=== PATIENT | female | born 1990 | race African-American/Black ===

== ENCOUNTER 2022-12-14 18:46 | Emergency (ER) | payer OTHER ==
[2022-12-14 19:49] LABS: Urine Blood Negative (Negative); Urine Glucose Negative (Negative); Urine Protein 3+ (Negative); Urine Specific Gravity >=1.030 (1.005-1.030)
[2022-12-14 19:52] LABS: Absolute Lymphocytes (CBC) 0.2 K/uL (0.7-4.9); Lymphocytes % 5.1 % (15.3-44.8); MCV 91.6 fL (80-100); MPV 8.8 fL (7.6-11.3); RBC Red Blood Cell Count 4.26 M/uL (3.86-4.86)
[2022-12-14 20:10] LABS: Albumin 3.7 g/dL (3.4-5.0); Bilirubin Total 0.4 mg/dL (0.2-1.0); Potassium 3.2 mmol/L (3.5-5.1); Protein, Total 7.6 g/dL (6.4-8.2)
[2022-12-14] MEDS ORDERED: ONDANSETRON 4 MG/2 ML VIAL ONE (20:28)
[2022-12-14] MEDS ORDERED: MORPHINE 4 MG/ML SYR ONE (20:28)
[2022-12-14] MEDS ORDERED: NA CHLORIDE 0.9% 1,000 ML ONE (20:29)
[2022-12-14 20:45] LABS: Blood Morphology Comment NOT SEEN (NOT SEEN); Platelet Estimate ADEQ; White Blood Cell Scan OK (OK)
--- NOTE | 2022-12-14 21:01 | RAD REPORT ---
EXAM DESCRIPTION: CTAbdomen Pelvis W Contrast - 12/14/2022 8:46 pm CLINICAL HISTORY: ABD PAIN COMPARISON: No comparisons TECHNIQUE: CT of the abdomen and pelvis was performed with IV contrast. All CT scans are performed using dose optimization technique as appropriate and may include automated exposure control or mA/KV adjustment according to patient size. FINDINGS: Lower chest: No acute abnormality. Liver: No acute abnormality or suspicious lesions. Biliary: No biliary ductal dilatation. Stomach: No significant focal abnormality. Duodenum: No significant focal abnormality. Pancreas: No significant abnormality. Spleen: No significant abnormality. Adrenal: No suspicious lesions. Kidney/ureter: No hydronephrosis. No renal calculi. Retroperitoneum: No retroperitoneal adenopathy. Vascular: No aneurysm. Bowel: No significant focal abnormality. Normal appendix . Moderate stool in the ascending and transv erse colon . Peritoneum: No ascites or free air. Bladder: Grossly unremarkable. Reproductive: No adnexal masses. Bones: No acute fracture. Other: n/a IMPRESSION: No acute intra-abdominal or pelvic finding. Normal appendix.
[2022-12-14 21:54] LABS: Urine Specific Gravity/Preg >1.030 (1.005-1.030)
[2022-12-14] MEDS ORDERED: DOXYCYCLINE 100 MG CAP PO ONE (22:30)
[2022-12-14] MEDS ORDERED: CEFTRIAXONE 1000 MG/VIAL ONE (22:30)
[2022-12-14] MEDS ORDERED: AZITHROMYCIN 250 MG TAB ONE (22:30)
[2022-12-15 00:15] VITALS: BP 110/62; TEMP 98; O2SAT 100
--- NOTE | 2022-12-27 16:21 | EDPHYS ---
Physician Documentation [facility] Name: Nick Ahumada Age: 32 yrs Sex: Female : 1990 Arrival Date: 12/14/2022 Time: 18:52 Bed 10 Private MD: ED Physician Robe Baez HPI: 12/14 22:12 This 32 yrs old Black Female presents to ER via Ambulatory with complaints of Abdominal kayley Pain, Dizziness, Headache. 22:12 The patient presents with dizziness. Onset: The symptoms/episode began/occurred 3 kayley day(s) ago. 22:12 Modifying factors: The symptoms are alleviated by nothing, lying down, the symptoms are kayley aggravated by standing up, changing position. Severity of symptoms: At their worst the symptoms were mild moderate in the emergency department the symptoms are unchanged. The symptoms are described as crampy. Historical: - Allergies: 18:57 No Known Allergies; mb9 - Home Meds: 18:57 None [Active]; mb9 - PMHx: 18:57 None; mb9 - PSHx: 18:57 None; mb9 - Immunization history:: Adult Immunizations up to date. - Social history:: Smoking status: Patient reports the use of cigarette tobacco products, denies chronic smoking, but will smoke occasionally. - Family history:: not pertinent. ROS: 22:12 Constitutional: Negative for fever, chills, and weight loss, Eyes: Negative for injury, kayley pain, redness, and discharge, ENT: Negative for injury, pain, and discharge, Neck: Negative for injury, pain, and swelling, Cardiovascular: Negative for chest pain, palpitations, and edema, Respiratory: Negative for shortness of breath, cough, wheezing, and pleuritic chest pain, Back: Negative for injury and pain, : Negative for injury, bleeding, discharge, and swelling, MS/Extremity: Negative for injury and deformity, Skin: Negative for injury, rash, and discoloration, Neuro: Negative for headache, weakness, numbness, tingling, and seizure, Psych: Negative for depression, anxiety, suicide ideation, homicidal ideation, and hallucinations, Allergy/Immunology: Negative for hives, rash, and allergies, Endocrine: Negative for neck swelling, polydipsia, polyuria, polyphagia, and marked weight changes, Hematologic/Lymphatic: Negative for swollen nodes, abnormal bleeding, and unusual bruising. 22:12 Abdomen/GI: Positive for abdominal pain, of the right upper quadrant, left upper quadrant, right lower quadrant and left lower quadrant. Exam: 22:12 Constitutional: This is a well developed, well nourished patient who is awake, alert, kayley and in no acute distress. Head/Face: Normocephalic, atraumatic. Eyes: Pupils equal round and reactive to light, extra-ocular motions intact. Lids and lashes normal. Conjunctiva and sclera are non-icteric and not injected. Cornea within normal limits. Periorbital areas with no swelling, redness, or edema. ENT: Nares patent. No nasal discharge, no septal abnormalities noted. Tympanic membranes are normal and external auditory canals are clear. Oropharynx with no redness, swelling, or masses, exudates, or evidence of obstruction, uvula midline. Mucous membranes moist. Neck: Trachea midline, no thyromegaly or masses palpated, and no cervical lymphadenopathy. Supple, full range of motion without nuchal rigidity, or vertebral point tenderness. No Meningismus. Chest/axilla: Normal chest wall appearance and motion. Nontender with no deformity. No lesions are appreciated. Cardiovascular: Regular rate and rhythm with a normal S1 and S2. No gallops, murmurs, or rubs. Normal PMI, no JVD. No pulse deficits. Respiratory: Lungs have equal breath sounds bilaterally, clear to auscultation and percussion. No rales, rhonchi or wheezes noted. No increased work of breathing, no retractions or nasal flaring. Back: No spinal tenderness. No costovertebral tenderness. Full range of motion. Skin: Warm, dry with normal turgor. Normal color with no rashes, no lesions, and no evidence of cellulitis. MS/ Extremity: Pulses equal, no cyanosis. Neurovascular intact. Full, normal range of motion. Neuro: Awake and alert, GCS 15, oriented to person, place, time, and situation. Cranial nerves II-XII grossly intact. Motor strength 5/5 in all extremities. Sensory grossly intact. Cerebellar exam normal. Normal gait. Psych: Awake, alert, with orientation to person, place and time. Behavior, mood, and affect are within normal limits. 22:12 Abdomen/GI: Inspection: distension, that is mild, that is moderate, Bowel sounds: active, all quadrants, Palpation: mild abdominal tenderness, moderate abdominal tenderness, in all quadrants, Liver: no appreciated palpable abnormalities, Hernia: not appreciated. Vital Signs: 18:56 BP 127 / 84; Pulse 119; Resp 20; Temp 98.4; Pulse Ox 97% ; Weight 90.72 kg; Height 5 mb9 ft. 3 in. ; Pain 10/10; 20:04 BP 124 / 72; Pulse 100; Resp 18 S; Temp 99.9; Pulse Ox 98% on R/A; as7 22:53 BP 110 / 62; Pulse 100; Resp 18; Temp 98; Pulse Ox 100% ; Pain 2/10; kb3 18:56 Body Mass Index 35.43 (90.72 kg, 160.02 cm) mb9 18:56 Pain Scale: Adult mb9 22:53 Pain Scale: Adult kb3 MDM: 19:17 Patient medically screened. kayley 19:23 Patient medically screened. kayley 22:14 Differential diagnosis: hypovolemia, near-syncope, , sepsis. Differential kayley diagnosis: cholecystitis, Cholelithiasis, diverticulitis, gastritis, Irritable bowel syndrome, Mesenteric ischemia or infarction, non-specific abd pain, pancreatitis, Peptic Ulcer Disease, Pyelonephritis, Ureterolithiasis, urinary tract infection. Data reviewed: vital signs, nurses notes, lab test result(s), radiologic studies, CT scan. Consideration of Admission/Observation Escalation of care including admission/observation considered. Independent interpretation of the following test(s) in the Emergency Department. Test considered but Not performed: Ultrasound GALLBLADDER USG. Care significantly affected by the following chronic conditions: NO CHRONIC MED PROBLEMS. 12/14 19:18 Order name: CBC with Diff; Complete Time: 21:43 [facility] 12/14 19:18 Order name: CMP; Complete Time: 21:43 [facility] 12/14 19:18 Order name: Lipase; Complete Time: 21:43 [facility] 12/14 19:49 Order name: Urine Dipstick-Ancillary; Complete Time: 21:43 EDFL 12/14 20:25 Order name: Urine --Ancillary (enter results) 12/14 20:45 Order name: CBC Smear Scan; Complete Time: 21:43 EDFL 12/14 21:54 Order name: Urine --Ancillary; Complete Time: 22:10 EDFL 12/14 19:18 Order name: CT Abd/Pelvis - IV Contrast Only kayley 12/14 21:02 Order name: CT; Complete Time: 21:43 EDMS 12/14 18:58 Order name: Urine Dipstick-Ancillary (obtain specimen); Complete Time: 19:58 [facility] 12/14 18:58 Order name: Urine Test (obtain specimen); Complete Time: 19:58 [facility] 12/14 19:18 Order name: IV Saline Lock; Complete Time: 19:58 [facility] 12/14 19:18 Order name: Labs collected and sent; Complete Time: 19:58 kayley Administered Medications: 20:32 Drug: NS 0.9% IV 1000 ml Route: IV; Rate: 1 bolus; Site: right antecubital; kb3 22:45 Follow up: Response: No adverse reaction; IV Status: Completed infusion; IV Intake: kb3 750ml 20:32 Drug: Ondansetron IVP 4 mg Route: IVP; Site: right antecubital; kb3 21:00 Follow up: Response: No adverse reaction; Nausea is decreased kb3 20:45 Drug: morphine IVP or IV 4 mg Route: IVP; Infused Over: 4 mins; Site: right antecubital;kb3 21:15 Follow up: Response: No adverse reaction; Pain is decreased kb3 22:38 Drug: Rocephin IV 1 grams Route: IV; Rate: per protocol; Site: right antecubital; kb3 22:46 Follow up: Response: No adverse reaction; IV Status: Completed infusion; IV Intake: [id number] 22:38 Drug: AZITHromycin PO 1 grams Route: PO; kb3 22:46 Follow up: Response: No adverse reaction kb3 22:38 Drug: Doxycycline PO 200 mg Route: PO; kb3 22:46 Follow up: Response: No adverse reaction kb3 Disposition Summary: 12/14/22 22:21 Discharge Ordered Location: Home kayley Problem: new kayley Symptoms: have improved kayley Condition: Stable kayley Diagnosis - Abdominal pain, Generalized kayley Followup: kayley - With: Private Physician - When: 2 - 3 days - Reason: Recheck today's complaints, Continuance of care, Re-evaluation by your physician Followup: kayley - With: Leti Neville MD - When: 2 - 3 days - Reason: Recheck today's complaints, Re-evaluation by your physician Discharge Instructions: - Discharge Summary Sheet [facility] - Abdominal Pain, Adult kayley - Abdominal Pain, Adult, [id number] [facility] - Preventing Sexually Transmitted Infections, Adult [facility] Forms: - Medication Reconciliation Form [facility] - Thank You Letter [facility] - Antibiotic Education [facility] - Prescription Opioid Use [facility] Prescriptions: - Zofran 4 mg Oral Tablet - take 1 tablet by ORAL route every 12 hours As needed; 20 tablet; Refills: 0, [facility] Product Selection Permitted - Doxycycline Hyclate 100 mg Oral Tablet - take 1 tablet by ORAL route every 12 hours; 20 tablet; Refills: 0, Product [facility] Selection Permitted - Cipro 500 mg Oral Tablet - take 1 tablet by ORAL route every 12 hours for 5 days; 10 tablet; Refills: 0, [facility] Product Selection Permitted - dicyclomine 20 mg Oral Tablet - take 1 tablet by ORAL route 4 times per day; 28 tablet; Refills: 0, Product [facility] Selection Permitted Signatures: Dispatcher [employer] EDMS Robe Baez MD MD cha Bradberry, Kelly RN RN kb3 Jane Jacques RN RN mb9 Corrections: (The following items were deleted from the chart) 22:14 21:57 QUANTITATIVE HCG+C.LAB.BRZ ordered. EDMS EDMS 22:22 22:10 TEST, SERUM+SC.LAB.BRZ ordered. EDMS EDMS
--- NOTE | 2022-12-27 16:21 | ER ---
Nurse's Notes [facility] Name: Nick Ahumada Age: 32 yrs Sex: Female : 1990 Arrival Date: 12/14/2022 Time: 18:52 Bed 10 Private MD: Diagnosis: Abdominal pain, Generalized Presentation: 12/14 18:56 Chief complaint: Patient states: "I've been throwing up for the past week and have a mb9 bad headache. My stomach hurts really bad and I haven't had a period in 3 weeks. My lower back and hips hurts". Coronavirus screen: Vaccine status: Patient reports being unvaccinated. Ebola Screen: No symptoms or risks identified at this time. Initial Sepsis Screen: Does the patient meet any 2 criteria? No. Patient's initial sepsis screen is negative. Does the patient have a suspected source of infection? No. Patient's initial sepsis screen is negative. Risk Assessment: Do you want to hurt yourself or someone else? Patient reports no desire to harm self or others. Onset of symptoms was December 05, 2022. 18:56 Method Of Arrival: Ambulatory mb9 18:56 Acuity: MARY 3 mb9 Historical: - Allergies: 18:57 No Known Allergies; mb9 - Home Meds: 18:57 None [Active]; mb9 - PMHx: 18:57 None; mb9 - PSHx: 18:57 None; mb9 - Immunization history:: Adult Immunizations up to date. - Social history:: Smoking status: Patient reports the use of cigarette tobacco products, denies chronic smoking, but will smoke occasionally. - Family history:: not pertinent. Screenin:30 [facility] ED Fall Risk Assessment (Adult) History of falling in the last 3 months, kb3 including since admission No falls in past 3 months (0 pts) Confusion or Disorientation No (0 pts) Intoxicated or Sedated No (0 pts) Impaired Gait No (0 pts) Mobility Assist Device Used No (0 pt) Altered Elimination No (0 pt) Score/Fall Risk Level 0 - 2 = Low Risk Oriented to surroundings, Maintained a safe environment, Educated pt \\T\\ family on fall prevention, incl call for assistance when getting out of bed, Assessed \\T\\ reinforced patient's understanding of fall precautions, Provided non-skid footwear, Hourly rounding (assess needs \\T\\ fall precautionary measures) done, Used ambulatory aids as needed (educated on \\T\\ assisted with). Abuse screen: Denies threats or abuse. Denies injuries from another. Nutritional screening: No deficits noted. Tuberculosis screening: No symptoms or risk factors identified. Assessment: 20:30 General: Appears in no apparent distress. Behavior is calm, cooperative, Received care kb3 of pt from Anyi CANELA. Pt en route to CT via WC. Advised medication orders in hand and will be administered upon return. PT states understanding. No questions at this time. 20:30 Pain: Complains of pain in suprapubic area, right lower quadrant, left lower quadrant kb3 and groin Pain does not radiate. Pain currently is 8 out of 10 on a pain scale. Quality of pain is described as burning, crampy, pressure, Pain began 3 weeks ago Is continuous, Also complains of nausea. GI: Bowel sounds present X 4 quads. Abd is soft X 4 quads Abdomen is tender to palpation in suprapubic area, right lower quadrant and left lower quadrant. Vital Signs: 18:56 BP 127 / 84; Pulse 119; Resp 20; Temp 98.4; Pulse Ox 97% ; Weight 90.72 kg; Height 5 mb9 ft. 3 in. ; Pain 10/10; 20:04 BP 124 / 72; Pulse 100; Resp 18 S; Temp 99.9; Pulse Ox 98% on R/A; as7 22:53 BP 110 / 62; Pulse 100; Resp 18; Temp 98; Pulse Ox 100% ; Pain 2/10; kb3 18:56 Body Mass Index 35.43 (90.72 kg, 160.02 cm) mb9 18:56 Pain Scale: Adult mb9 22:53 Pain Scale: Adult kb3 ED Course: 18:52 Patient arrived in ED. mr 18:57 Triage completed. mb9 18:58 Arm band placed on. mb9 19:17 Robe Baez MD is Attending Physician. kayley 19:58 CBC with Diff Sent. as7 19:58 CMP Sent. as7 19:58 Lipase Sent. as7 20:00 No provider procedures requiring assistance completed. Inserted saline lock: 20 gauge kb3 in right antecubital area, using aseptic technique. Blood collected. 20:[address] via wheelchair. kb3 20:30 Patient has correct armband on for positive identification. Bed in low position. Call kb3 light in reach. 20:32 Urine --Ancillary (enter results) Sent. kb3 22:28 Leti Neville MD is Referral Physician. [facility] 22:54 IV discontinued, intact, bleeding controlled, No redness/swelling at site. kb3 Administered Medications: 20:32 Drug: NS 0.9% IV 1000 ml Route: IV; Rate: 1 bolus; Site: right antecubital; kb3 22:45 Follow up: Response: No adverse reaction; IV Status: Completed infusion; IV Intake: kb3 750ml 20:32 Drug: Ondansetron IVP 4 mg Route: IVP; Site: right antecubital; kb3 21:00 Follow up: Response: No adverse reaction; Nausea is decreased kb3 20:45 Drug: morphine IVP or IV 4 mg Route: IVP; Infused Over: 4 mins; Site: right antecubital;kb3 21:15 Follow up: Response: No adverse reaction; Pain is decreased kb3 22:38 Drug: Rocephin IV 1 grams Route: IV; Rate: per protocol; Site: right antecubital; kb3 22:46 Follow up: Response: No adverse reaction; IV Status: Completed infusion; IV Intake: [id number] 22:38 Drug: AZITHromycin PO 1 grams Route: PO; kb3 22:46 Follow up: Response: No adverse reaction kb3 22:38 Drug: Doxycycline PO 200 mg Route: PO; kb3 22:46 Follow up: Response: No adverse reaction kb3 Medication: 18:58 VIS not applicable for this client. mb9 Intake: 22:45 IV: 750ml; Total: 750ml. kb3 22:46 IV: 10ml; Total: 760ml. kb3 Outcome: 22:21 Discharge ordered by . [facility] 22:54 Discharged to home ambulatory, with family. kb3 22:54 Condition: stable 22:54 Discharge instructions given to patient, Instructed on discharge instructions, follow up and referral plans. medication usage, safe sex practices, Demonstrated understanding of instructions, follow-up care, medications, Prescriptions given X 4. 22:54 Patient left the ED. kb3 Signatures: Robe Baez MD MD cha Rivera, Mary mr Bradberry, Kelly, RN RN kb3 Jane Jacques RN RN mb9 [place], Mona as7 Corrections: (The following items were deleted from the chart) 22:14 22:05 QUANTITATIVE HCG+C.LAB.VANESA drawn and sent. as7 EDMS
== END 2022-12-14 22:54 | disposition home or self-care (01) ==
LOC: ER 18:46 → EDSEX 18:46 → ER 22:54
DX: R10.84 Generalized abdominal pain (principal); F17.210 Nicotine dependence, cigarettes, uncomplicated
CPT/HCPCS: 96361; 85025; 36415; 81025; 81003; 83690; 80053; 74177; 96375; 96374; 99284; Q9967; J2405; J7030; J0696